=== PATIENT | female | born 1965 | race Caucasian/White ===

== ENCOUNTER 2023-12-16 06:39 | Day surgery (SDC) | payer MEDICAID ==
[~2023-12-16] VITALS: Ht 152.4 cm; Wt 78.2 kg
[2023-12-16 08:46] VITALS: O2SAT 96
[2023-12-16] MEDS ORDERED: MIDAZOLAM HCL 5 MG/5 ML VIAL ONE (08:47)
[2023-12-16] MEDS ORDERED: SIMETHICONE 40 MG/0.6 ML ML ONE (08:47)
[2023-12-16] MEDS ORDERED: MEPERIDINE 100 MG INJ. 100 MG/ML VIAL ONE (08:47)
[2023-12-16] MEDS ORDERED: ONDANSETRON HCL 4 MG/2 ML VIAL ONE (09:13)
[2023-12-16 12:25] VITALS: BP_SYST 113; PULSE 68; RESP 14
[2023-12-20] MEDS ORDERED: ALBMDI INH (17:45)
[2023-12-20] MEDS ORDERED: PRED20TA PO (17:45)
== END 2023-12-16 11:25 | disposition home or self-care (01) ==
LOC: SDS 06:39 → SMU 06:40 → SDS 11:25
PROVIDERS: ATTEND Internal Medicine Gastroenterology
DX: K62.5 Hemorrhage of anus and rectum (principal); K29.50 Unspecified chronic gastritis without bleeding; D12.5 Benign neoplasm of sigmoid colon; K21.9 Gastro-esophageal reflux disease without esophagitis; R13.10 Dysphagia, unspecified; K64.8 Other hemorrhoids; Z95.5 Presence of coronary angioplasty implant and graft; Z95.1 Presence of aortocoronary bypass graft; Z79.82 Long term (current) use of aspirin; Z79.899 Other long term (current) drug therapy; Z80.0 Family history of malignant neoplasm of digestive organs; Z80.1 Family history of malignant neoplasm of trachea, bronchus and lung
CPT/HCPCS: 45385; 43239; 43248; 99152; 87081; 36415; 88305; 88312; 88313; 99153; G0378; J2250; J2405; J2175; C1769